=== PATIENT | female | born 1975 | race Hispanic/Latino ===

== ENCOUNTER 2018-12-26 09:14 | Observation (INO) | payer BC, OTHER ==
[~2018-12-26] VITALS: Ht 162.6 cm; Wt 85.3 kg
[2018-12-26 09:49] LABS: BASOPHILS % (AUTO) 0.5 % (0.0-5.0); LYMPHOCYTES % (AUTO) 22.7 % (21.0-51.0); MEAN CORPUSCULAR HEMOGLOBIN 19.7 pg (27.0-33.0); MONOCYTES % (AUTO) 4.6 % (3.0-13.0); NEUTROPHILS % (AUTO) 71.2 % (40.0-77.0); NUCLEATED RED BLOOD CELLS 0.2 % (0.0-0.19); PLATELET COUNT (AUTO) 327 K/uL (130-400); RED BLOOD CELL COUNT(AUTO) 3.38 MIL/uL (4.00-5.50); RED CELL DISTRIBUTION WIDTH 19.8 % (11.0-15.5); WHITE BLOOD COUNT (AUTO) 12.8 K/uL (4.8-10.8)
[2018-12-26 09:59] LABS: CREATININE 0.6 mg/dL (0.5-1.5); POTASSIUM 3.4 mmol/L (3.5-5.1)
[2018-12-26 10:01] LABS: INR 0.92 (0.85-1.15); PARTIAL THROMBOPLASTIN TIME 22.4 SEC (26.3-35.5); PROTHROMBIN TIME 9.7 SEC (9.6-11.6)
[2018-12-26 10:03] LABS: ALBUMIN 3.5 g/dL (3.5-5.0); BILIRUBIN,TOTAL 0.5 mg/dL (0.2-1.0); TOTAL PROTEIN, SERUM 7.8 g/dL (6.0-8.3)
[2018-12-26] MEDS ORDERED: SODIUM CHLORIDE 0.9% 250 ML IV ONE (10:40)
[2018-12-26] MEDS ORDERED: SODIUM CHLORIDE 0.9% 1000ML 1,000 ML IV ONE (11:42)
[2018-12-26] MEDS ORDERED: ACETAMINOPHEN-CODEINE 300/30MG TAB PO PRN (12:30)
[2018-12-26 12:34] VITALS: BP 142/85
[2018-12-26] MEDS: ACETAMINOPHEN 325 MG TAB PO PRN (14:29)
--- NOTE | 2018-12-26 15:55 | NUR ---
TRANSFUSION 2ND UNIT OF PRBC STARTED AT THIS TIME. S/S OF REACTION REVIEWED WITH PATIENT, VERBALIZED UNDERSTANDING.
[2018-12-26 16:10] VITALS: BP 116/70
[2018-12-26] MEDS ORDERED: DOCU50CA13 PO (16:52)
[2018-12-26] MEDS ORDERED: FERR-82 PO (16:52)
--- NOTE | 2018-12-26 18:05 | NUR ---
TRANSFUSION 2ND UNIT OF PRBCS COMPLETED AT THIS TIME. NO REACTION NOTED.
--- NOTE | 2018-12-26 18:50 | NUR ---
NOTIFIED ON US RESULTS. NEW ORDERS RECEIVED TO START PROVERA 10MG BID.
[2018-12-26 19:22] VITALS: BP 137/82
--- NOTE | 2018-12-26 19:30 | NUR ---
PT. VOIDED CLEAR LEROY URINE WITH 3 SMALL CLOTS ALL THE SIZE OF A QUARTER. SCANT PINKISH BLEEDING NOTED IN NILO PAD. Addendum: 12/27/18 at 0645 by IRENE TORRES RN RN Amended: Links added.
[2018-12-26] MEDS: MEDROXYPROGESTERONE ACET 5 MG TAB PO SCH (20:49)
[2018-12-26 23:17] VITALS: BP 126/71
[2018-12-27 02:21] LABS: HEMATOCRIT 27.7 % (36-48)
[2018-12-27 03:22] VITALS: BP 110/68
[2018-12-27 07:18] VITALS: BP 116/72
[2018-12-27] MEDS: MEDROXYPROGESTERONE ACET 5 MG TAB PO SCH (09:01)
[2018-12-27] MEDS: ACETAMINOPHEN 325 MG TAB PO PRN (09:02)
[2018-12-27 11:29] VITALS: BP 115/73
--- NOTE | 2018-12-27 12:55 | NUR ---
DISCHARGE PATIENT LEFT UNIT VIA WHEELCHAIR WITH BELONGINGS IN HAND ACCOMPANIED BY FAMILY MEMBER. PERSONAL VEHICLE USED FOR TRANSPORTATION. NO COMPLAINTS OR CONCERNS ADDRESSED FROM PATIENT ON DISCHARGE.
== END 2018-12-27 12:55 | disposition home or self-care (01) ==
LOC: EDH 09:14 → EDHIP 11:40 → WSH 12:30
PROVIDERS: ADMIT Obstetrics & Gynecology; ATTEND Obstetrics & Gynecology
DX: N92.0 Excessive and frequent menstruation with regular cycle (principal); Z90.49 Acquired absence of other specified parts of digestive tract; Z79.899 Other long term (current) drug therapy; Z79.01 Long term (current) use of anticoagulants
CPT/HCPCS: 36415; 36430; 76856; 80053; 81025; 85014; 85018; 85025; 85610; 85730; 86850; 86900; 86901; 86922 ×2; 93005; 99291; G0378 ×25; J7030 ×3; P9016 ×2

== ENCOUNTER 2019-07-20 11:04 | Emergency (ER) | payer BC ==
[~2019-07-20 11:04] MED LIST: DOCU50CA13 PO; FERR-82 PO
[2019-07-20 11:17] LABS: BASOPHILS % (AUTO) 0.4 % (0.0-5.0); EOSINOPHILS % (AUTO) 0.7 % (0.0-8.0); HEMATOCRIT 33.4 % (36-48); LYMPHOCYTES % (AUTO) 26.3 % (21.0-51.0); MEAN CORPUSCULAR HEMOGLOBIN 25.4 pg (27.0-33.0); MEAN CORPUSCULAR HGB CONC 31.4 g/dL (32.0-36.0); MEAN CORPUSCULAR VOLUME 80.9 fL (79-99); MONOCYTES % (AUTO) 6.4 % (3.0-13.0); NEUTROPHILS % (AUTO) 65.8 % (40.0-77.0); PLATELET COUNT (AUTO) 290 K/uL (130-400); RED BLOOD CELL COUNT(AUTO) 4.13 MIL/uL (4.00-5.50); RED CELL DISTRIBUTION WIDTH 14.3 % (11.0-15.5); WHITE BLOOD COUNT (AUTO) 9.6 K/uL (4.8-10.8)
[2019-07-20 11:38] LABS: INR 0.92 (0.85-1.15); PROTHROMBIN TIME 9.7 SEC (9.6-11.6)
[2019-07-20 11:46] LABS: CREATININE 0.6 mg/dL (0.5-1.5); POTASSIUM 3.8 mmol/L (3.5-5.1)
[2019-07-20 11:50] LABS: ALBUMIN 3.6 g/dL (3.5-5.0); BILIRUBIN,TOTAL 0.4 mg/dL (0.2-1.0); TOTAL PROTEIN, SERUM 8.2 g/dL (6.0-8.3)
[2019-07-20] MEDS ORDERED: ONDANSETRON HCL 4 MG/2 ML VIAL ONE (13:07)
== END 2019-07-20 14:36 | disposition home or self-care (01) ==
LOC: EDH 11:04
DX: R07.89 Other chest pain (principal); K21.9 Gastro-esophageal reflux disease without esophagitis; Z88.6 Allergy status to analgesic agent; Z90.49 Acquired absence of other specified parts of digestive tract; Z79.899 Other long term (current) drug therapy
CPT/HCPCS: 36415; 71045; 80053; 82550; 84484 ×2; 85025; 85610; 85730; 93005 ×2; 94640; 96365; 96375; 99285; J2405

== ENCOUNTER 2023-09-05 22:34 | Emergency (ER) | payer BC ==
[~2023-09-05] VITALS: Ht 165.1 cm; Wt 90.3 kg
[2023-09-05 22:49] VITALS: BP 167/97; PULSE 91; RESP 18; O2SAT 100
[2023-09-05 23:00] LABS: APPEARANCE,URINE CLEAR (CLEAR); BILIRUBIN,URINE NEGATIVE (NEGATIVE); COLOR,URINE COLORLESS (YELLOW); GLUCOSE, URINE (UA) NEGATIVE (NEGATIVE); KETONES,URINE NEGATIVE (NEGATIVE); LEUKOCYTE ESTERASE ,URINE NEGATIVE Leu/uL (NEGATIVE); NITRATE,URINE NEGATIVE (NEGATIVE); OCCULT BLOOD,URINE SMALL (NEGATIVE); PH,URINE 6.5 (5.0-8.0); PROTEIN,URINE NEGATIVE (NEGATIVE); UROBILINOGEN,URINE 0.2 mg/dL (0.2-1.0)
[2023-09-05 23:01] LABS: ADD UA MICROSCOPIC YES
[2023-09-05 23:04] LABS: MUCUS,URINE RARE LPF (None Seen); SQUAMOUS EPITHELIAL CELL,UR RARE /HPF (0-2); WBC,URINE 0-1 /HPF (0-1)
[2023-09-05 23:22] LABS: BASOPHILS # (AUTO) 0.04 K/uL (0.00-0.20); BASOPHILS % (AUTO) 0.4 % (0.0-5.0); EOSINOPHILS # (AUTO) 0.15 K/uL (0.00-0.70); EOSINOPHILS % (AUTO) 1.3 % (0.0-8.0); IMMATURE GRANULOCYTE ABSOLUTE 0.03 K/uL (0-1); LYMPHOCYTES % (AUTO) 26.4 % (21.0-51.0); MEAN CORPUSCULAR HEMOGLOBIN 29.2 pg (27.0-33.0); MEAN CORPUSCULAR HGB CONC 33.3 g/dL (32.0-36.0); MEAN CORPUSCULAR VOLUME 87.8 fL (79-99); MONOCYTES # (AUTO) 0.5 K/uL (0.1-1.0); MONOCYTES % (AUTO) 4.6 % (3.0-13.0); NEUTROPHILS # (AUTO) 7.6 K/uL (1.8-7.7); PLATELET COUNT (AUTO) 294 K/uL (130-400); RED CELL DISTRIBUTION WIDTH 13.5 % (11.0-15.5); WHITE BLOOD COUNT (AUTO) 11.3 K/uL (4.8-10.8)
[2023-09-05 23:32] LABS: CREATININE 0.7 mg/dL (0.5-1.0); POTASSIUM 3.6 mmol/L (3.5-5.1)
[2023-09-05 23:36] LABS: ALBUMIN 3.8 g/dL (3.5-5.0); BILIRUBIN,TOTAL 0.7 mg/dL (0.2-1.0); TOTAL PROTEIN, SERUM 8.1 g/dL (6.0-8.3)
[2023-09-06] MEDS ORDERED: ACET-2893 PO (00:46)
[2023-09-06] MEDS ORDERED: MECL-302 PO (00:46)
== END 2023-09-06 00:54 | disposition home or self-care (01) ==
LOC: EDH 22:34
DX: H81.10 Benign paroxysmal vertigo, unspecified ear (principal); R03.0 Elevated blood-pressure reading, without diagnosis of hypertension; F41.9 Anxiety disorder, unspecified; F43.0 Acute stress reaction; R20.2 Paresthesia of skin; Z88.6 Allergy status to analgesic agent; Z90.49 Acquired absence of other specified parts of digestive tract; Z90.710 Acquired absence of both cervix and uterus
CPT/HCPCS: 36415; 80053; 81001; 85025; 93005